=== PATIENT | male | born 1995 | race Caucasian/White ===

== ENCOUNTER 2021-07-08 17:41 | Emergency (ER) | payer MEDICAID, SELFPAY ==
[~2021-07-08] VITALS: Ht 185.4 cm; Wt 81.8 kg
[2021-07-08 17:43] VITALS: BP 105/63
[2021-07-08] MEDS ORDERED: LIDOCAINE 1% MDV 20ML VIAL SC ONE (19:40)
== END 2021-07-08 20:45 | disposition home or self-care (01) ==
LOC: M ED 17:41
DX: S50.852A Superficial foreign body of left forearm, initial encounter (principal); F15.10 Other stimulant abuse, uncomplicated; W46.1XXA Contact with contaminated hypodermic needle, initial encounter; Y92.099 Unspecified place in other non-institutional residence as the place of occurrence of the external cause; Y93.89 Activity, other specified; Y99.9 Unspecified external cause status; F17.200 Nicotine dependence, unspecified, uncomplicated